=== PATIENT | female | born 1995 | race Two or more races ===

== ENCOUNTER 2024-05-23 08:34 | Emergency (ER) | payer MEDICAID, SELFPAY ==
[2024-05-23 08:49] VITALS: BP 181/92; PULSE 89; RESP 20; TEMP 36.8; O2SAT 96
[2024-05-23 09:02] VITALS: BP 150/96; PULSE 80; RESP 16; O2SAT 96
--- NOTE | 2024-05-23 09:02 | PC.NURSE ---
pt here with c/o vomiting and diff breathing since last night
--- NOTE | 2024-05-23 09:54 | PC.NURSE ---
DR. JACKMAN IN TO SEE PT
--- NOTE | 2024-05-23 09:58 | XR_ITS ---
Examination: AP chest single view Technique: AP portable sitting chest single view Exam date and time: May 23, 2024 1004 hrs. Indications: Onset chest pain today. Findings: Normal heart size No lobar pneumonia No pulmonary edema The osseous structures are intact Impression: No pneumonia or pulmonary edema
--- NOTE | 2024-05-23 09:59 | XR_ITS ---
Examination: Abdomen sonogram, Limited Date and time of exam: May 19, 2024 at 11:35 AM Indications: Right upper abdominal pain with vomiting beginning 2 days ago Technique: Real-time martinez scale transabdominal sonographic images of the upper abdomen obtained. Findings: Negative for gallstones Gallbladder wall 0.3 cm no edema Common bile duct normal 0.2 cm Pancreatic head 2.7 cm heterogeneous echogenicity but no definite edema Liver 17.1 cm fatty infiltration smooth contour no focal liver lesions Normal hepatopedal portal venous flow Patent IVC Impression: Normal gallbladder Normal common bile duct Mild hepatomegaly fatty liver no focal liver lesions
[2024-05-23 10:00] VITALS: BP 140/87; PULSE 71; RESP 16; O2SAT 95
--- NOTE | 2024-05-23 10:03 | EDNOTE_ITS ---
ED SOB =RME/HPI General Chief Complaint: Nausea/Vomiting/Diarrhea Stated Complaint: VOMITING, SOB, BLINKING INVOLUNTARILY Time Seen by Provider: 05/23/24 08:40 Arrival date/time: 05/23/24 08:34 RME / HPI RME / HPI Narrative: Patient comes the emergency room states last night she had some onset of vomiting with right upper quadrant abdominal pain. She felt short of breath states her eye were blinking has no nausea at the time of my evaluation and has not vomited since yesterday. Denies any fever blood injury or other problem. At 1055 hours, I went to talk more with the patient. She states she started first with nausea and vomiting at 1 AM today; shortly after she started having right upper quadrant pain. Then, this morning she started feeling anxious , short of breath, bilateral hand numbness, and her eyes were twitching, not blinking as we originally thought. She states she might of had anxiety because she started thinking of her chronic problems including thyroid problems and diabetes and her blood pressure went up. Patient denies any diarrhea, fevers, chills, fall, injury, or any other symptoms at this time. PMHx: Thyroid problems, hypercholesterolemia, hypertension and diabetes. Social Hx: No tobacco, alcohol, or substance use. Related Data Allergies Allergy/AdvReac Type Severity Reaction Status Date / Time No Known Allergies Allergy Verified 05/23/24 08:36 Review of Systems Review of Systems Systems Reviewed: All systems reviewed, normal except as documented Narrative Review of Systems: GEN: No fever, no chills, no weight loss EYES: No discharge, no visual changes, no pain HEENT: No ear pain, no congestion, no sore throat, + eye twitching PULM: + shortness of breath, no cough, no congestion CV: No chest pain, no dyspnea on exertion, no palpitations GI: + nausea, + vomiting, no diarrhea, + right upper quadrant pain, no constipation : No frequency, no urgency and no dysuria MUSC/SKEL: No joint pain, no back pain SKIN: No rash PSYCH: No hallucinations, no depression, + anxiety (w/ shortness of breath, bi lateral hand numbness, and eye twitching see HPI) HEME/LYMPH: No easy bleeding or bruising tendencies NEURO: No weakness, no headache, + bilateral hand numbness Past Medical History Past Medical History CARDIAC: Positive Hypercholesterolemia and Hypertension ENDOCRINE: Positive Diabetes Mellitus Type 2 and Hypothyroidism Social History SMOKING STATUS: Never smoker SUBSTANCE USE: does not use ALCOHOL: Never ED Exam Narrative Physical exam: Physical Exam: General: The vital signs were reviewed. The patient is non-toxic, in no apparent distress and appears healthy with a patent airway, no respiratory distress and has no apparent circulatory problems. Head & Scalp: Normocephalic, atraumatic. Face: Appears normal and is without lesions, deformity. Ears: Left external pinna appears normal. Right external pinna appears normal. Eyes: The sclera is anicteric. No obvious photophobia. The Left and Right Orbit/Lid/Conjunctiva appears normal without swelling, discoloration or in jection. Nose: The nose is without deformity, discharge or tenderness; Throat: Appears normal. The mucous membranes are pink and moist without exudates, redness or mass seen. The tongue appears normal. Neck: The neck is supple and no apparent mass or adenopathy. Chest: The chest wall is normal in size and symmetry and has no chest wall tenderness or crepitus. The patient displays normal ventilator effort without retractions, accessory muscle use and has adequate air movement bilaterally with no wheezes and no rales. Cardiovascular: Regular rate and rhythm; No murmurs, rubs, or gallops; Gastrointestinal: The abdomen appears normal. No obvious hernias or mass. The abdomen has right upper quadrant tenderness otherwise is soft and benign, non-distended, with no pain, no guarding and no rebound tenderness. Bowel sounds are present and normal sounding. No CVA tenderness. Genitourinary: Back/Spine: Normal inspection Extremities/Musculoskeletal/lymphatic: The bilateral upper and lower extremities are warm. There is no evidence of arterial insufficiency. There is no evidence of venous insufficiency/edema. The patient spontaneously moves bilateral upper and lower extremities with no pain and no limitation of movement. There is no apparent, injury or trauma. Skin: The skin is warm, dry and intact. No rashes. No petechia. No purpura. No abnormal bruising. The color is appropriate with no cyanosis. Mental status/Psychiatric: Mental status is appropriate for age. The patient has no apparent delusions, visual hallucinations, no apparent audible hallucinations. The patient has no apparent suicidal thoughts/ideation and no apparent homicidal thoughts/ideation. Neurological: The patient is awake, alert, interactive, cordial, cooperative and is oriented to name and situation. The patient follows commands and answers historical question with no impairment. There is no visual disturbance apparent. The pupils are equal and reactive bilaterally with normal eye movements and no diplopia The bilateral upper and lower extremities have normal strength, normal range of motion and normal functioning. The gait, station and balance appear to be baseline with no acute change Course Quality Measures none Orders Category Date Time Status NPO NOW Care 05/23/24 09:58 Active Diet NPO (NOW) Diet 05/23/24 09:58 Active US abdomen limited Stat Exams 05/23/24 09:59 Completed XR chest 1V portable Stat Exams 05/23/24 09:58 Completed B-Type Natriuretic Peptide Stat Lab 05/23/24 09:06 Completed CBC Stat Lab 05/23/24 09:06 Completed Comprehensive Metabolic Panel Stat Lab 05/23/24 09:06 Completed Lactate (Lactic Acid) Stat Lab 05/23/24 10:35 Completed Lipase Stat Lab 05/23/24 09:06 Completed T4 (Thyroxine) Stat Lab 05/23/24 09:06 Completed Thyroid Stimulating Hormone Stat Lab 05/23/24 09:06 Completed Troponin I Stat Lab 05/23/24 09:06 Completed Urinalysis, C/S if Indicated Stat Lab 05/23/24 09:11 Completed Urine Culture Stat Lab 05/23/24 09:11 Received Ketorolac Inj [Toradol Inj] Med 05/23/24 10:00 Discontinued 15 mg IVP X1 ONE Sodium Chloride 0.9% 1000 ml [Ns] 1,000 ml Med 05/23/24 10:00 Active IV 200 mls/hr Sodium Chloride 0.9% 1000 ml [Ns] 1,000 ml Med 05/23/24 10:01 Discontinued IV 999 mls/hr Vital Signs Vital signs: Vital Signs Temperature 98.2 F 05/23/24 08:49 Pulse Rate 89 05/23/24 08:49 Respiratory Rate 20 05/23/24 08:49 Blood Pressure 181/92 H 05/23/24 08:49 Pulse Oximetry (%) 96 05/23/24 08:49 Oxygen Delivery Method Room Air 05/23/24 08:49 Shortness of Breath / Dyspnea MDM Narrative MDM Narrative:: Patient has an episode of abdominal pain started last night in the right upper quadrant and she vomited several times but no diarrhea no fever no history of kidney problems no history of urinary symptoms she also states she got tingling numbness in the hands her eyes were twitching and she also felt short of breath however, and patient comes in because she has continued right upper quadrant pain and honestly when we spent a good 10 minutes trying to start this out with the mine development engineer patient appears to have had an anxiety attack. Patient talks about her thyroid antibodies and her diabetes and medical problems. She is quite concerned or scared and admits to being anxious. Patient took reassurance well medical workup was done and white count was 7.8 he moglobin 14.2 chemistries were unremarkable other than potassium slightly low at 3.2 and my guess is that is from hyperventilating a little bit. As she has no reason to have hypokalemia. Transaminases and bilirubin were normal. Troponin and BNP were negative. TSH is 9.69 and thyroxine is 11.0 raising the issue of a centrally mediated hyperthyroid with elevated TRH. Patient talked about having some type of autoimmune thyroiditis patient certainly is not in any thyroid storm but needs to follow-up with her doctor to get this further sorted out. Urinalysis came back essentially unremarkable for an unclean catch specimen. Ultrasound of the abdomen reveals normal gallbladder no gallstones were seen. Chest x-ray reveals no infiltrates no effusion normal heart. Reevaluation at 1400 hrs. shows the patient be comfortable smiling in no distress her abdomen is totally soft and benign there is no pain at this time. She was advised to follow-up with her regular doctor and catering director to sort out the abnormalities in her thyroid testing today. It sounds like they already have worked her up thoroughly for her thyroid. Meenu Graff, am scribing for and in the presence of Dr. Belcher. Patient data External records reviewed:: None (no previous visits) Clinical information provided by:: patient Social determinants that could affect healthcare access:: none Patient has the following chronic illnesses:: Thyroid problems, hypercholesterolemia, hypertension and diabetes. How is presenting disease/condition affected by chronic disease/condition?: exacerbated by Evaluation data The following diagnostics were reviewed and interpreted by me:: lab results and radiology exam(s) Lab and/or radiology exams considered but not ordered:: none Interpretation Summary: See above under MDM narrative. RADIOLOGY Procedure(s): XR chest 1V portable Accession Number(s): [id number] cc: Lit Cruz MD; Blake Good MD; Anjel Conte PA-C~ Examination: AP chest single view Technique: AP portable sitting chest single view Exam date and time: May 23, 2024 1004 hrs. Indications: Onset chest pain today. Findings: Normal heart size No lobar pneumonia No pulmonary edema The osseous structures are intact Impression: No pneumonia or pulmonary edema Dictated By: Blake Good MD Procedure(s): US abdomen limited Accession Number(s): [id number] cc: Lit Cruz MD; Blake Good MD; Anjel Conte PA-C~ Examination: Abdomen sonogram, Limited Date and time of exam: May 19, 2024 at 11:35 AM Indications: Right upper abdominal pain with vomiting beginning 2 days ago Technique: Real-time martinez scale transabdominal sonographic images of the upper abdomen obtained. Findings: Negative for gallstones Gallbladder wall 0.3 cm no edema Common bile duct normal 0.2 cm Pancreatic head 2.7 cm heterogeneous echogenicity but no definite edema Liver 17.1 cm fatty infiltration smooth contour no focal liver lesions Normal hepatopedal portal venous flow Patent IVC Impression: Normal gallbladder Normal common bile duct Mild hepatomegaly fatty liver no focal liver lesions Dictated By: Blake Good MD Medications / Prescriptions Medications or Prescriptions considered but not ordered:: none Medication administrations:: Medication Administration History Sodium Chloride (Ns) 1,000 mls @ 200 mls/hr IV .Q5H TIM Stop: 06/22/24 09:59 Last Admin: 05/23/24 10:41 Dose: 200 mls/hr Documented By: BD Discontinued Medications Sodium Chloride (Ns) 1,000 mls @ 999 mls/hr IV .Q1H1M ONE Stop: 05/23/24 11:01 Last Infusion: 05/23/24 12:18 Dose: Infused Documented By: Admin: 05/23/24 10:32 Dose: 999 mls/hr Documented By: BD Ketorolac Tromethamine (Ketorolac Inj 30 Mg/Ml Vial) 15 mg IVP X1 ONE Stop: 05/23/24 10:01 Last Admin: 05/23/24 10:37 Dose: 15 mg Documented By: BD see above Consultations Consultation(s) initiated? (list below): No Diagnosis Shortness of Breath Differential Diagnosis: other (gallstones, gastritis, anxiety) Most likely diagnosis given after review of the tests above:: As noted below. Admission Indicated Admission indicated?: not indicated Admission Request Was there a request for admission?: No Disposition Plan Disposition Plan: Discharge Discharge Attestation Discharge Attestation: The patient and all family members were given an opportunity to ask questions and understood the discharge instructions. Discharge instructions specifically effects, indications for sooner follow up or return to the emergency department, and the expected course of current diagnosis. Patient condition: Stable Discharge Plan Plan Patient Disposition: HOME (Self Care) Prescriptions/Referrals Referrals: Anjel Conte PA-C [Primary Care Provider] - In 1 week Problem List Clinical Impression: Abdominal pain, Anxiety attack, Hyperthyroidism, Vomiting Patient/Caregiver Discharge Instructions Education Materials: Abdominal Pain Additional Instructions: As we discussed if your abdominal pain returns and persist please return for reevaluation. Also your thyroid functions are little high today both TSH and T4 are elevated. Make sure they consider working you up for elevated TRH and central causes of hyperthyroidism. Print Language: Danish Stand Alone Forms: [facility]elia Award Info., Patient Portal Info Letter
[2024-05-23] MEDS: SODIUM CHLORIDE 0.9% 1000 ML 1,000 ML 999 ML IV (10:32)
[2024-05-23 10:35] VITALS: BP 131/91; PULSE 74; RESP 16; O2SAT 97
[2024-05-23] MEDS: KETOROLAC INJ 30 MG/ML VIAL 15 MG IVP (10:37)
[2024-05-23 10:41] LABS: Collection Type, Urine Catheter; RBC,Urine 0 /hpf (0-3)
[2024-05-23] MEDS: SODIUM CHLORIDE 0.9% 1000 ML 1,000 ML 200 ML IV (10:41)
--- NOTE | 2024-05-23 10:41 | PC.NURSE ---
Dr. JACKMAN IN ROOM AT BED SIDE W/PT
[2024-05-23 10:43] LABS: Lactate (Lactic Acid) 0.9 mMol/L (0.4-2.0)
[2024-05-23 10:55] LABS: Basophils # (Auto) 0.1 Thou/mm3 (0.0-0.2); Basophils % (Auto) 1 % (0-2.5); Eosinophils # (Auto) 0.3 Thou/mm3 (0.0-0.5); Eosinophils % (Auto) 4 % (0-10); Hematocrit 41.8 % (36.0-46.0); Hemoglobin 14.2 g/dL (12.0-16.0); Immature Granulocytes % (Auto) 1 % (0-0); Immature Granulocytes Auto 0.04 Thou/mm3 (0.00-0.00); Lymphocytes # (Auto) 1.6 Thou/mm3 (1.0-4.8); Lymphocytes % (Auto) 20 % (10-50); Mean Corpuscular Hemoglobin 31.5 pg (25.0-35.0); Mean Corpuscular Volume 93 fL (80-100); Monocytes # (Auto) 0.6 Thou/mm3 (0.0-0.8); Monocytes % (Auto) 7 % (0-12); Neutrophils # (Auto) 5.3 Thou/mm3 (1.8-7.7); Neutrophils % (Auto) 68 % (37-80); Nucleated Red Blood Cell % 0 /100 WBC (0); Platelet Count 390 Thou/mm3 (140-440); RDW Standard Deviation 42.9 fL (36.4-46.3); Red Blood Count 4.51 Miln/mm3 (4.00-5.20); White Blood Count 7.8 Thou/mm3 (3.6-11.0)
[2024-05-23 11:07] LABS: Alanine Aminotransferase 43 U/L (10-49); Albumin, Serum 5.2 gm/dL (3.5-5.0); Albumin/Globulin Ratio 1.6 (1.2-2.2); Alkaline Phosphatase 112 U/L (46-116); Anion Gap 10 (7-16); Aspartate Amino Transferase 29 U/L (0-34); BUN/Creatinine Ratio 13 Ratio (12-20); Bilirubin,Total 0.5 mg/dL (0.3-1.2); Blood Urea Nitrogen 9 mg/dL (9-23); Calcium 9.7 mg/dL (8.3-10.6); Calcium (Corrected) 9.7 mg/dL (8.5-10.1); Carbon Dioxide 27.2 mMol/L (20.0-31.0); Chloride 101 mMol/L (98-107); Creatinine (Component) 0.7 mg/dL (0.6-1.3); Globulin 3.2 gm/dL (2.3-3.5); Glucose 86 mg/dL (74-106); Lipase 40 U/L (12-53); Osmolality,Calculated 273 (275-295); Potassium 3.2 mMol/L (3.4-5.1); Sodium 138 mMol/L (136-145); Thyroid Stimulating Hormone 9.69 uIU/mL (0.55-4.78); Total Protein 8.4 gm/dL (5.7-8.2); Troponin I < 0.002 ng/mL (0.0-0.045); eGFR > 60 See Note
[2024-05-23 11:20] LABS: B-Type Natriuretic Peptide < 20 pg/mL (0-100)
[2024-05-23 11:36] LABS: Amorphous Crystals,Urine Present (Absent); Bacteria,Urine 3+; Bilirubin,Urine Negative (Negative); Blood,Urine Trace (Negative); Clarity,Urine Turbid (Clear/Hazy); Color,Urine Yellow (Lt Yel-Yel); Glucose, Urine Negative (Negative); Ketones,Urine Negative (Negative); Leukocyte Esterase,Urine Negative (Negative); Nitrite,Urine Positive (Negative); PH,Urine 8.5 (5.0-7.0); Protein,Urine 1+ (Neg - Trace); Specific Gravity,Urine 1.019 (1.001-1.035); Squamous Epithelial Cell,Urine 6 /hpf (0-5); Urobilinogen,Urine Negative mg/dL (0.0-1.0); WBC,Urine 2 /hpf (0-5)
[2024-05-23 11:38] LABS: Culture Indicated,Urine Yes; Sperm,Urine Present
[2024-05-23 12:05] VITALS: BP 131/92; PULSE 71; RESP 16; TEMP 37; O2SAT 99
[2024-05-23 14:00] VITALS: BP 134/82; PULSE 70; RESP 16; O2SAT 97
== END 2024-05-23 15:03 | disposition home or self-care (01) ==
PROVIDERS: Emergency Provider Emergency Medicine; PCP Physician Assistant
DX: K76.0 Fatty (change of) liver, not elsewhere classified (principal); E05.90 Thyrotoxicosis, unspecified without thyrotoxic crisis or storm; F41.9 Anxiety disorder, unspecified; R07.9 Chest pain, unspecified
CPT/HCPCS: 36415; 71045; 76705; 80053; 81001; 83605; 83690; 83880; 84436; 84443; 84484; 85025; 87077; 87086; 87186; 96361; 96374; 99284; J1885; J7030